=== PATIENT | female | born 1970 | race Caucasian/White ===

== ENCOUNTER 2018-02-13 13:40 | Emergency (ER) | payer MEDICARE, MEDICAID ==
--- NOTE | 2018-02-13 15:12 | ER Document Report ---
ED Medical Screen (RME) - General Chief Complaint: Possible Kidney Stone Stated Complaint: RIGHT FLANK PAIN Time Seen by Provider: 02/13/18 15:10 Notes: Patient states she started with right low back pain about a month ago. She states she had an x-ray done at urgent care that showed a kidney stone. She states she was told to follow-up with urology but has not done that yet. She states she started to have right lower abdominal pain again several days ago. She states she went to see a urologist but they would not see her because she did not have any type of imaging study with her. She states she has since gone to the urgent care and obtained a copy of the x-ray. She states no CT scan was done. She states that she does take oxycodone every day at home but this is not touching the pain. She also takes muscle relaxers daily for fibromyalgia. She also takes Klonopin for seizures. And states that she had a stroke and was prescribed Adderall for the stroke. TRAVEL OUTSIDE OF THE [place] IN LAST 30 DAYS: No - Related Data Allergies/Adverse Reactions: acetaminophen Allergy (Verified 02/13/18 13:45) ibuprofen [From Motrin] Allergy (Verified 02/13/18 13:45) Past Medical History - General Last Menstrual Period: partial hysterectomy - Social History Chew tobacco use (# tins/day): No Frequency of alcohol use: None Drug Abuse: None Neurological Medical History: Reports: Hx Migraine, Hx Seizures Renal/ Medical History: Denies: Hx Peritoneal Dialysis Psychiatric Medical History: Reports: Hx Depression - anxiety Past Surgical History: Reports: Hx Appendectomy, Hx Cholecystectomy, Hx Hysterectomy Physical Exam - Vital signs Vitals: Temp Pulse Resp BP Pulse Ox 97.6 F 92 16 114/77 100 02/13/18 13:49 02/13/18 13:49 02/13/18 13:49 02/13/18 13:49 02/13/18 13:49 Course - Vital Signs Vital signs: Temp Pulse Resp BP Pulse Ox 97.6 F 92 16 114/77 100 02/13/18 13:49 02/13/18 13:49 02/13/18 13:49 02/13/18 13:49 02/13/18 13:49
[2018-02-13 15:42] LABS: APPEARANCE,URINE CLOUDY; BILIRUBIN,URINE NEGATIVE (NEGATIVE); CALCIUM OXALATE CRYSTALS,URINE TOO NUMEROUS TO CNT /HPF; COLOR,URINE YELLOW; GLUCOSE, URINE NEGATIVE (NEGATIVE); KETONES,URINE NEGATIVE (NEGATIVE); LEUKOCYTE ESTERASE,URINE TRACE (NEGATIVE); NITRITE,URINE NEGATIVE (NEGATIVE); PROTEIN,URINE NEGATIVE (NEGATIVE); URINE SPECIFIC GRAVITY 1.019; UROBILINOGEN,URINE NEGATIVE mg/dL (<2.0)
--- NOTE | 2018-02-13 16:28 | RADIOLOGY REPORT (SQ) ---
EXAM DESCRIPTION: CT ABD/PELVIS NO ORAL OR IV COMPLETED DATE/TIME: 02/13/2018 4:19 pm REASON FOR STUDY: rlq pain COMPARISON: None. TECHNIQUE: CT scan of the abdomen and pelvis performed without intravenous or oral contrast. Images reviewed with lung, soft tissue, and bone windows. Reconstructed coronal and sagittal MPR images revi ewed. All images stored on PACS. All CT scanners at this facility use dose modulation, iterative reconstruction, and/or weight based d osing when appropriate to reduce radiation dose to as low as reasonably achievable (ALARA). [facility]: Dose Right [facility]: CareDose [facility]: Dose Right [facility]: Teradose 4D [facility]: Smart DigitalAdvisor RADIATION DOSE: CT Rad equipment meets quality standard of care and radiation dose reduction techniq ues were employed. CTDIvol: 4.9 mGy. DLP: 266 mGy-cm.mGy. LIMITATIONS: None. FINDINGS: LOWER CHEST: No significant findings. No nodules or infiltrates. NON-CONTRASTED LIVER, SPLEEN, ADRENALS: Evaluation limited by lack of IV contrast. No identified sign ificant masses. PANCREAS: No masses. No peripancreatic inflammatory changes. GALLBLADDER: Surgically absent. RIGHT KIDNEY AND URETER: No suspicious masses. Assessment limited by lack of IV contrast. 3 mm ston e in ureterovesical junction. Mild hydronephrosis and hydroureter. LEFT KIDNEY AND URETER: No suspicious masses. Assessment limited by lack of IV contrast. No signifi cant calcifications. No hydronephrosis or hydroureter. AORTA AND RETROPERITONEUM: No aneurysm. No retroperitoneal masses or adenopathy. BOWEL AND PERITONEAL CAVITY: No obvious masses or inflammatory changes. No free fluid. APPENDIX: Surgically absent. PELVIS, BLADDER, AND ABDOMINAL WALL:No abnormal masses. No free fluid. Bladder normal. BONES: No significant findings. OTHER: No other significant finding. IMPRESSION: 3 mm stone right ureterovesical junction. Mild hydronephrosis. COMMENT: Quality ID # [id number]: Final reports with documentation of one or more dose reduction techniques (e.g., Automated exposure control, adjustment of the mA and/or kV according to patient size, use of iterative reconstruction technique) TECHNICAL DOCUMENTATION: JOB ID: [id number] [employer]- All Rights Reserved Reading location - IP/workstation name: [email or web address]
[2018-02-13] MEDS ORDERED: TAMSULOSIN HCL 0.4 MG CAP.SR.24H PO ONE (17:15)
[2018-02-13] MEDS ORDERED: ONDANSETRON 4 MG TAB.RAPDIS PO ONE (17:16)
[2018-02-13] MEDS ORDERED: OXYCODONE HCL IR 5 MG TABLET PO ONE (17:16)
[2018-02-13] MEDS ORDERED: CEPHALEXIN 500 MG CAPSULE PO ONE (17:27)
--- NOTE | 2018-02-13 17:36 | ER Document Report ---
ED GI/ - General Chief Complaint: Possible Kidney Stone Stated Complaint: RIGHT FLANK PAIN Time Seen by Provider: 02/13/18 15:10 Information source: Patient Notes: 48 yo female with persistant lower right abd pain from kidney stone. Originally dx 2-18, has not passed it yet. No fever or vomiting. No vaginal discharge. No dysuria. TRAVEL OUTSIDE OF THE [place] IN LAST 30 DAYS: No - Related Data Allergies/Adverse Reactions: acetaminophen Allergy (Verified 02/13/18 13:45) ibuprofen [From Motrin] Allergy (Verified 02/13/18 13:45) Past Medical History - General Information source: Patient Last Menstrual Period: partial hysterectomy - Social History Smoking Status: Current Every Day Smoker Chew tobacco use (# tins/day): No Frequency of alcohol use: None Drug Abuse: None Lives with: Family Family History: Reviewed & Not Pertinent Patient has suicidal ideation: No Patient has homicidal ideation: No Neurological Medical History: Reports: Hx Migraine, Hx Seizures Renal/ Medical History: Reports: Hx Kidney Stones. Denies: Hx Peritoneal Dialysis Psychiatric Medical History: Reports: Hx Depression - anxiety Past Surgical History: Reports: Hx Appendectomy, Hx Cholecystectomy, Hx Hysterectomy Review of Systems - Review of Systems Constitutional: No symptoms reported EENT: No symptoms reported Cardiovascular: No symptoms reported Respiratory: No symptoms reported Gastrointestinal: No symptoms reported Genitourinary: No symptoms reported Female Genitourinary: See HPI Musculoskeletal: No symptoms reported Skin: No symptoms reported Hematologic/Lymphatic: No symptoms reported Neurological/Psychological: No symptoms reported Physical Exam - Vital signs Vitals: Temp Pulse Resp BP Pulse Ox 97.6 F 92 16 114/77 100 02/13/18 13:49 02/13/18 13:49 02/13/18 13:49 02/13/18 13:49 02/13/18 13:49 Interpretation: Normal - General General appearance: Appears well, Alert In distress: None - HEENT Head: Normocephalic, Atraumatic Eyes: Normal Pupils: PERRL Neck: Supple - Respiratory Respiratory status: No respiratory distress Chest status: Nontender Breath sounds: Normal Chest palpation: Normal - Cardiovascular Rhythm: Regular Heart sounds: Normal auscultation Murmur: No - Abdominal Inspection: Normal Distension: No distension Bowel sounds: Normal Tenderness: Tender - mild right pelvis Organomegaly: No organomegaly - Back Back: Normal, Nontender. No: CVA tenderness - Extremities General upper extremity: Normal inspection, Nontender, Normal color, Normal ROM , Normal temperature General lower extremity: Normal inspection, Nontender, Normal color, Normal ROM , Normal temperature, Normal weight bearing. No: Edward's sign - Neurological Neuro grossly intact: Yes Cognition: Normal Orientation: AAOx4 [place] Coma Scale Eye Opening: Spontaneous [place] Coma Scale Verbal: Oriented Usha Coma Scale Motor: Obeys Commands [place] Coma Scale Total: 15 Speech: Normal Motor strength normal: LUE, RUE, LLE, RLE Sensory: Normal - Psychological Associated symptoms: Normal affect, Normal mood - Skin Skin Temperature: Warm Skin Moisture: Dry Skin Color: Normal Skin irregularity: negative: Rash Course - Re-evaluation Re-evalutation: 02/13/18 18:11 called pt, forgot to give her the Keflex prescription 500 mg 4 times a day and I have signed it and put it at the pivot test. Her CT scan showed 3 mm UV junction stone which she should be able to pass but now that she has a CT report she can follow-up with the urologist. 02/13/18 18:30 Right [facility] called and asked about the oxycodone prescription that I wrote for the patient. She was given 90 from [facility] on February [address] Edwards. I therefore told her not to fill the oxycodone but to fill the Zofran and Flomax. I also called in cephalexin 500 mg 4 times a day #28 that I had left her message about. - Vital Signs Vital signs: Temp Pulse Resp BP Pulse Ox 97.9 F 69 16 116/85 100 02/13/18 17:40 02/13/18 17:40 02/13/18 17:40 02/13/18 17:40 02/13/18 17:40 - Laboratory Laboratory results interpreted by me: 02/13/18 14:50 Urine Blood MODERATE H Ur Leukocyte Esterase TRACE H Discharge - Discharge Clinical Impression: Right 3 mm UV junction stone, Mild hydronephrosis Condition: Good Disposition: HOME, SELF-CARE Instructions: Antinausea Medication ([facility]), Flomax ([facility]), Kidney Stone ([facility]), Oral Narcotic Medication ([facility]) Additional Instructions: see the urologist to er if can't manage the pain at home stop the flomax if the pain resolves you can take up to 10mg oxycodone for pain if needed zofran for nausea Prescriptions: Oxycodone HCl [Oxy-Ir 5 mg Tablet] 5 - 10 mg PO Q4HP PRN #20 tab PRN Reason: Cephalexin Monohydrate [Keflex 500 mg Capsule] 500 mg PO QID #28 capsule Ondansetron HCl [Zofran 4 mg Tablet] 1 - 2 tab PO Q4H PRN #30 tablet PRN Reason: Tamsulosin HCl [Flomax 0.4 mg Cap.sr] 0.4 mg PO DAILY #6 cap.sr.24h Referrals: JANI VERONICA PA [NO LOCAL MD] - Follow up as needed CHRISTIE VERONICA MD [BRISA SHAH] - Follow up as needed
[2018-02-13 18:00] VITALS: BP 116/85
== END 2018-02-13 17:45 | disposition home or self-care (01) ==
LOC: ER 13:40
DX: N13.2 Hydronephrosis with renal and ureteral calculous obstruction (principal); F17.200 Nicotine dependence, unspecified, uncomplicated
CPT/HCPCS: 99284; 81025; 81001; 74176; A9270 ×3; S0119